=== PATIENT | female | born 1975 | race Caucasian/White ===

== ENCOUNTER 2021-05-26 15:58 | Emergency (ER) | payer MEDICAID ==
[2021-05-26] MEDS ORDERED: Sodium Chloride 0.9% 1,000 ML IV ONE (16:38)
[2021-05-26] MEDS ORDERED: Sodium Chloride 0.9% 10 ML Syringe FLUSH PRN (16:38)
[2021-05-26] MEDS ORDERED: Ondansetron 4 MG/2 ML SDV IVPUSH ONE (16:39)
[2021-05-26 17:31] LABS: SODIUM,NA 142 mmol/L (136-145)
[2021-05-26 17:32] LABS: ANION GAP 11.4 mmol/L (5-15); CHLORIDE,CL 108 mmol/L (98-107)
[2021-05-26] MEDS ORDERED: Iopamidol 755 Mg/ML 75 ML Bottle IVPUSH ONE (17:43)
[2021-05-26] MEDS ORDERED: Sodium Chloride 0.9% 50 ML IV SCH (17:45)
[2021-05-26 18:41] LABS: RESPIRATORY SYNCYTIAL VIR NAA NEGATIVE (NEGATIVE)
[2021-05-26 18:45] LABS: CORONAVIRUS COVID-19 NAA POSITIVE (NEGATIVE)
[2021-05-26] MEDS ORDERED: Sodium Chloride 0.9% 500 ML IV SCH (20:00)
[2021-05-26] MEDS ORDERED: Pantoprazole 40 MG Vial IVPUSH ONE (20:27)
--- NOTE | 2021-05-26 20:35 | EDM.PDOC ---
ED HPI GENERAL MEDICAL PROBLEM - General Chief Complaint: Gastrointestinal Problem Stated Complaint: NAUSEA, VOMITING Time Seen by Provider: 05/26/21 16:10 Source of Information: Reports: Patient, Family () History Limitations: Reports: No Limitations - History of Present Illness INITIAL COMMENTS - FREE TEXT/NARRATIVE: 45-year-old female presents to the emergency room with several week history of body aches and 3-day history of diarrhea with associated nausea and vomiting beginning yesterday. She states that she has been trying to stay hydrated with drinking fluids and Pedialyte. Her symptoms have progressively gotten worse over the last 48 hours. The body aches have been the worst for her. She denies significant shortness of breath or dyspnea. She denies chest pain. She has been experiencing some abdominal discomfort associated with the diarrhea over the last 3 days. She has not been able to tolerate foods. She has recently been to [place] with her where they were visiting her son who has been incarcerated. She has not been able to return back to work due to her illness. Not have the Covid vaccine. She is nontoxic-appearing. Onset: Gradual Duration: Day(s):, Week(s):, Getting Worse Location: Reports: Abdomen, Generalized Quality: Reports: Ache Severity: Moderate Improves with: Reports: None Context: Reports: Sick Contact Associated Symptoms: Reports: Headaches, Nausea/Vomiting Lower Abdomen Pain Score (Numeric/FACES): 4 - Related Data Allergies Allergy/AdvReac Type Severity Reaction Status Date / Time No Known Allergies Allergy Verified 05/26/21 16:32 Past Medical History Psychiatric History: Reports: Anxiety, Depression Social & Family History - Tobacco Use Tobacco Use Status *Q: Never Tobacco User - Caffeine Use Caffeine Use: Reports: Coffee - Alcohol Use Days Per Week of Alcohol Use: 1 Number of Drinks Per Day: 1 Total Drinks Per Week: 1 - Recreational Drug Use Recreational Drug Use: Yes Recreational Drug Type: Reports: Marijuana/Hashish Recreational Drug Use Frequency: Monthly Recreational Drug Last Use: 3 weeks ago ED ROS GENERAL - Review of Systems Review Of Systems: See Below Constitutional: Reports: Malaise, Weakness, Fatigue, Night Sweats, Decreased Appetite, Weight Loss HEENT: Reports: No Symptoms Respiratory: Reports: Cough. Denies: Shortness of Breath Cardiovascular: Denies: Chest Pain Endocrine: Reports: No Symptoms GI/Abdominal: Reports: Abdominal Pain, Diarrhea, Nausea, Vomiting : Reports: Hematuria (Current menstrual cycle). Denies: Dysuria Musculoskeletal: Reports: Muscle Stiffness, Other (Muscle aches myalgias) Skin: Denies: Cyanosis, Rash Neurological: Reports: Dizziness, Headache. Denies: Numbness, Paresthesia, Trouble Speaking, Difficulty Walking, Weakness Psychiatric: Reports: Depression Hematologic/Lymphatic: Reports: No Symptoms Immunologic: Reports: No Symptoms ED EXAM, GI/ABD - Physical Exam Exam: See Below Exam Limited By: No Limitations General Appearance: Alert, WD/WN, Mild Distress Eyes: Bilateral: Normal Appearance, EOMI Ears: Normal External Exam, Normal Canal, Hearing Grossly Normal, Normal TMs Nose: Normal Inspection Throat/Mouth: Normal Inspection, Normal Lips, Normal Oropharynx, Normal Voice, No Airway Compromise Head: Atraumatic, Normocephalic Neck: Normal Inspection, Supple, Non-Tender, Full Range of Motion. No: Lymphadenopathy (L), Lymphadenopathy (R) Respiratory/Chest: No Respiratory Distress, Decreased Breath Sounds (bilateral). No: Crackles, Wheezing, Retractions, Splinting Cardiovascular: Regular Rate, Rhythm GI/Abdominal Exam: Normal Bowel Sounds, Soft, Non-Tender, No Organomegaly, No Distention, No Abnormal Bruit, No Mass Back Exam: Normal Inspection, Full Range of Motion Extremities: Normal Inspection, Normal Range of Motion, Non-Tender, No Pedal Edema Neurological: Alert, Oriented, CN II-XII Intact, Normal Cognition, No Motor/Sensory Deficits Psychiatric: Depressed Mood Skin Exam: Warm, Dry, Intact, Normal Color, No Rash Lymphatic: No Adenopathy Course - Vital Signs Last Recorded V/S: Last Vital Signs Temp 96.4 F L 05/26/21 16:33 Pulse 76 05/26/21 16:33 Resp 20 05/26/21 16:33 BP 155/85 H 05/26/21 16:33 Pulse Ox 96 05/26/21 16:33 - Orders/Labs/Meds Orders: Active Orders 24 hr Category Date Time Status Peripheral IV Care [RC] . DIRECTED Care 05/26/21 16:38 Active Abdomen Pelvis w Cont [CT] Stat Exams 05/26/21 17:42 Ordered Sodium Chloride 0.9% [Normal Saline] 50 ml Med 05/26/21 17:45 Active IV ASDIRECTED Sodium Chloride 0.9% [Normal Saline] 500 ml Med 05/26/21 20:00 Active IV .BOLUS Sodium Chloride 0.9% [Saline Flush] Med 05/26/21 16:38 Active 10 ml FLUSH Q8HR PRN Peripheral IV Insertion Adult [OM.PC] Routine Oth 05/26/21 16:38 Ordered Medication Orders Sodium Chloride (Normal Saline) 50 mls @ 200 mls/hr IV ASDIRECTED HARLEEN Last Admin: 05/26/21 18:29 Dose: 200 mls/hr Documented by: ALBA Sodium Chloride (Normal Saline) 500 mls @ 999 mls/hr IV .BOLUS HARLEEN Last Admin: 05/26/21 20:10 Dose: 999 mls/hr Documented by: MARTI Sodium Chloride (Sodium Chloride 0.9% 10 Ml Syringe) 10 ml FLUSH Q8HR PRN PRN Reason: keep vein open Last Admin: 05/26/21 17:00 Dose: 10 ml Documented by: MARTI Labs: Laboratory Tests 05/26/21 05/26/21 05/26/21 Range/Units 16:50 16:50 17:10 WBC 4.69 L (5.00-10.00) 10^3/uL RBC 5.10 (3.80-5.50) 10^6/uL Hgb 14.0 (12.0-16.0) g/dL Hct 42.1 (37.0-47.0) % MCV 82.5 (82.0-92.0) fL MCH 27.5 (27.0-31.0) pg MCHC 33.3 (32.0-36.0) g/dL RDW 14.2 (11.5-14.5) % Plt Count 346 (150-400) 10^3/uL MPV 10.8 H (7.4-10.4) fL Immature Gran % (Auto) 0.0 (0.0-5.0) % Neut % (Auto) 59.3 (50.0-70.0) % Lymph % (Auto) 30.9 (20.0-40.0) % [place] % (Auto) 7.5 (2.0-8.0) % Eos % (Auto) 2.1 (1.0-3.0) % Baso % (Auto) 0.2 (0.0-1.0) % Neut # (Auto) 2.78 (2.50-7.00) 10^3/uL Lymph # (Auto) 1.45 (1.00-4.00) 10^3/uL [place] # (Auto) 0.35 (0.10-0.80) 10^3/uL Eos # (Auto) 0.10 (0.10-0.30) 10^3/uL Baso # (Auto) 0.01 (0.00-0.10) 10^3/uL Immature Gran # (Auto) 0.00 (0.00-0.50) 10^3/uL Sodium 142 (136-145) mmol/L Potassium 3.5 (3.5-5.1) mmol/L Chloride 108 H (98-107) mmol/L Carbon Dioxide 26.1 (21.0-32.0) mmol/L Anion Gap 11.4 (5-15) mmol/L BUN 10 (7-18) mg/dL Creatinine 0.65 (0.51-1.17) mg/dL Est Cr Clr Drug Dosing 77.68 mL/min Estimated GFR (MDRD) > 60 mL/min Glucose 116 (70-140) mg/dL Calcium 9.0 (8.7-10.3) mg/dL Total Bilirubin 0.5 (0.2-1.0) mg/dL AST 60 H (15-37) U/L ALT 88 H (14-63) U/L Alkaline Phosphatase 72 (46-116) U/L Total Protein 7.5 (6.4-8.2) g/dL Albumin 3.45 (3.40-5.00) g/dL Specimen Type Urincc Urine Color Kyleigh H (YELLOW) Urine Appearance Cloudy H (CLEAR) Urine pH 6.0 (5.0-9.0) Ur Specific [place] >= 1.030 (1.005-1.030) Urine Protein 100 H (NEGATIVE) mg/dL Urine Glucose (UA) Negative (NEGATIVE) mg/dL Urine Ketones Trace H (NEGATIVE) mg/dL Urine Occult Blood Large H (NEGATIVE) Urine Nitrite Negative (NEGATIVE) Urine Bilirubin Small H (NEGATIVE) Urine Urobilinogen >=8.0 H (0.2-1.0) E.U./dL Ur Leukocyte Esterase Trace H (NEGATIVE) Urine RBC >100 H (0-5) /HPF Urine WBC 0-5 (0-5) /HPF Ur Epithelial Cells Moderate H /LPF Urine Bacteria Moderate H (NONE TO FEW) /HPF Influenza Type A RNA (NEGATIVE) RSV RNA (INAAT) (NEGATIVE) Influenza Type B RNA (NEGATIVE) SARS-CoV-2 RNA (ROCKY) (NEGATIVE) 05/26/21 Range/Units 17:15 WBC (5.00-10.00) 10^3/uL RBC (3.80-5.50) 10^6/uL Hgb (12.0-16.0) g/dL Hct (37.0-47.0) % MCV (82.0-92.0) fL MCH (27.0-31.0) pg MCHC (32.0-36.0) g/dL RDW (11.5-14.5) % Plt Count (150-400) 10^3/uL MPV (7.4-10.4) fL Immature Gran % (Auto) (0.0-5.0) % Neut % (Auto) (50.0-70.0) % Lymph % (Auto) (20.0-40.0) % [place] % (Auto) (2.0-8.0) % Eos % (Auto) (1.0-3.0) % Baso % (Auto) (0.0-1.0) % Neut # (Auto) (2.50-7.00) 10^3/uL Lymph # (Auto) (1.00-4.00) 10^3/uL [place] # (Auto) (0.10-0.80) 10^3/uL Eos # (Auto) (0.10-0.30) 10^3/uL Baso # (Auto) (0.00-0.10) 10^3/uL Immature Gran # (Auto) (0.00-0.50) 10^3/uL Sodium (136-145) mmol/L Potassium (3.5-5.1) mmol/L Chloride (98-107) mmol/L Carbon Dioxide (21.0-32.0) mmol/L Anion Gap (5-15) mmol/L BUN (7-18) mg/dL Creatinine (0.51-1.17) mg/dL Est Cr Clr Drug Dosing mL/min Estimated GFR (MDRD) mL/min Glucose (70-140) mg/dL Calcium (8.7-10.3) mg/dL Total Bilirubin (0.2-1.0) mg/dL AST (15-37) U/L ALT (14-63) U/L Alkaline Phosphatase (46-116) U/L Total Protein (6.4-8.2) g/dL Albumin (3.40-5.00) g/dL Specimen Type Urine Color (YELLOW) Urine Appearance (CLEAR) Urine pH (5.0-9.0) Ur Specific [place] (1.005-1.030) Urine Protein (NEGATIVE) mg/dL Urine Glucose (UA) (NEGATIVE) mg/dL Urine Ketones (NEGATIVE) mg/dL Urine Occult Blood (NEGATIVE) Urine Nitrite (NEGATIVE) Urine Bilirubin (NEGATIVE) Urine Urobilinogen (0.2-1.0) E.U./dL Ur Leukocyte Esterase (NEGATIVE) Urine RBC (0-5) /HPF Urine WBC (0-5) /HPF Ur Epithelial Cells /LPF Urine Bacteria (NONE TO FEW) /HPF Influenza Type A RNA Negative (NEGATIVE) RSV RNA (INAAT) Negative (NEGATIVE) Influenza Type B RNA Negative (NEGATIVE) SARS-CoV-2 RNA (ROCKY) Positive H (NEGATIVE) Meds: Medications Generic Name Dose Route Start Last Admin Trade Name Freq PRN Reason Stop Dose Admin Sodium Chloride 50 mls @ 200 mls/hr 05/26/21 17:45 05/26/21 18:29 Normal Saline IV 200 mls/hr ASDIRECTED HARLEEN Administration Sodium Chloride 500 mls @ 999 mls/hr 05/26/21 20:00 05/26/21 20:10 Normal Saline IV 999 mls/hr .BOLUS HARLEEN Administration Sodium Chloride 10 ml 05/26/21 16:38 05/26/21 17:00 Sodium Chloride 0.9% 10 Ml Syringe FLUSH 10 ml Q8HR PRN Administration keep vein open Discontinued Medications Generic Name Dose Route Start Last Admin Trade Name Freq PRN Reason Stop Dose Admin Sodium Chloride 1,000 mls @ 1,000 mls/hr 05/26/21 16:38 05/26/21 17:03 Normal Saline IV 05/26/21 17:37 1,000 mls/hr .BOLUS ONE Administration Iopamidol 75 ml 05/26/21 17:43 05/26/21 18:29 Iopamidol 755 Mg/Ml 75 Ml Bottle IVPUSH 05/26/21 17:44 75 ml ONETIME ONE Administration Ondansetron HCl 4 mg 05/26/21 16:39 05/26/21 17:02 Ondansetron 4 Mg/2 Ml Sdv IVPUSH 05/26/21 16:40 4 mg ONETIME ONE Administration Pantoprazole Sodium 40 mg 05/26/21 20:27 Pantoprazole 40 Mg Vial IVPUSH 05/26/21 20:28 ONETIME ONE - Radiology Interpretation Free Text/Narrative:: CT the abdomen pelvis with IV contrast Findings: Scattered patchy areas of nonmasslike and geographic appearing groundglass paronychial opacification in both lung bases. Liver, spleen, gallbladder, pancreas, adrenal glands and kidneys are unremarkable. Fourth portion of the duodenum extending into the proximal do jejunum in the left upper quadrant demonstrates circumferential wall thickening with mild amount of reactive changes in the adjacent mesenteric fat. Findings are nonspecific but can be seen with mild enteritis. No colitis or diverticulitis. Appendix is normal. Prominent appearance of the cervix without discrete mass or other focal abnormality. Findings are nonspecific. No prior imaging available for comparison or correlation. Uterus and adrenal regions are otherwise unremarkable. No ascites. Impression: Scattered patchy areas of geographic appearing nonmasslike groundglass opacification in both lung bases. Findings are nonspecific but can be seen with pneumonia, including sequela of COVID-19. Possible changes of enteritis involving the fourth portion of the duodenum and proximal jejunum in the left upper quadrant. Examination is otherwise unremarkable. - Re-Assessments/Exams Free Text/Narrative Re-Assessment/Exam: 05/26/21 21:20 Patient was given 1-1/2 L of IV fluid normal saline. She was given 4 mg of IV Zofran. Patient reports improvement of her nausea and vomiting. Her lightheaded and dizziness had improved with IV fluid resuscitation. I have gone over the findings and results patient is Covid positive this is likely causation for her myalgia complaints. She has mild enteritis. We started her on Protonix. Departure - Departure Time of Disposition: 19:00 Disposition: Home, Self-Care 01 Condition: Fair Clinical Impression: COVID-19, Enteritis, Myalgia after COVID-19 vaccination Nausea and vomiting Qualifiers: Vomiting type: unspecified Vomiting Intractability: non-intractable Qualified Code(s): R11.2 - Nausea with vomiting, unspecified - Discharge Information Instructions: Gastritis, Adult, [id number], 10 Things You Can Do to Manage Your COVID-19 Symptoms at Home - [facility] (03/16/2021) Referrals: Veronica Melendez MD [Primary Care Provider] - Forms: ED Department Discharge Care Plan Goals: 1. Stay at home and get plenty of rest. Isolation for 14 days or till symptoms are resolved. 2. Continue with oral hydration 3. Tylenol or ibuprofen for aches and pains. 4. Follow-up with your primary care if respiratory symptoms become pronounced or difficulty breathing worsens. 5. Zofran 4 mg ODT every 4 to 6 hours as needed for nausea Sepsis Event Note (ED) - Evaluation Sepsis Screening Result: No Definite Risk - Focused Exam Vital Signs: Vital Signs Temp Pulse Resp BP Pulse Ox 05/26/21 16:33 96.4 F L 76 20 155/85 H 96 - My Orders Last 24 Hours: My Active Orders 05/26/21 16:38 Peripheral IV Care [RC] . DIRECTED Sodium Chloride 0.9% [Saline Flush] 10 ml FLUSH Q8HR PRN Peripheral IV Insertion Adult [OM.PC] Routine 05/26/21 17:42 Abdomen Pelvis w Cont [CT] Stat 05/26/21 17:45 Sodium Chloride 0.9% [Normal Saline] 50 ml IV ASDIRECTED 05/26/21 20:00 Sodium Chloride 0.9% [Normal Saline] 500 ml IV .BOLUS - Assessment/Plan Last 24 Hours: My Active Orders 05/26/21 16:38 Peripheral IV Care [RC] . DIRECTED Sodium Chloride 0.9% [Saline Flush] 10 ml FLUSH Q8HR PRN Peripheral IV Insertion Adult [OM.PC] Routine 05/26/21 17:42 Abdomen Pelvis w Cont [CT] Stat 05/26/21 17:45 Sodium Chloride 0.9% [Normal Saline] 50 ml IV ASDIRECTED 05/26/21 20:00 Sodium Chloride 0.9% [Normal Saline] 500 ml IV .BOLUS Assessment:: 1. Covid positive. 2. Mild enteritis. 3. Myalgias due to Covid positive. 4. Nausea vomiting. Plan: 1. Stay at home and get plenty of rest. Isolation for 14 days or till symptoms are resolved. 2. Continue with oral hydration 3. Tylenol or ibuprofen for aches and pains. 4. Follow-up with your primary care if respiratory symptoms become pronounced or difficulty breathing worsens. 5. Zofran 4 mg ODT every 4 to 6 hours as needed for nausea.
[2021-05-26] MEDS ORDERED: Ondansetron 4 MG Tab.DIS PO PRN (20:47)
== END 2021-05-26 21:00 | disposition home or self-care (01) ==
LOC: KA.ED 15:58
DX: U07.1 COVID-19 (principal); M79.10 Myalgia, unspecified site; T50.B95A Adverse effect of other viral vaccines, initial encounter; K52.9 Noninfective gastroenteritis and colitis, unspecified
CPT/HCPCS: 0241U; 36415; 74177; 80053; 81001; 85025; 96374; 99284; 99284-25; A9270-GY; J2405; J7030; J7040; Q9967